=== PATIENT | male | born 1945 | race American Indian/Alaskan Native ===

== ENCOUNTER 2020-06-16 11:15 | Emergency (ER) | payer MEDICARE ==
[2020-06-16] MEDS ORDERED: oxyCODONE /ACETAMINOPHEN 5-325MG TAB PO ONE (12:00)
--- NOTE | 2020-06-16 12:03 | Emergency Department Report ---
ED General Adult HPI - General Chief complaint: Extremity Injury, Lower Stated complaint: RT HIP PAIN Time Seen by Provider: 06/16/20 11:56 Source: patient, EMS Mode of arrival: Wheelchair Limitations: Physical Limitation - History of Present Illness Initial comments: 74-year-old -[place] male patient presents with complaints of sudden onset of right hip pain upon waking this morning. He denies any injuries to the hip, heavy lifting, numbness/tingling/weakness in his leg, urinary symptoms, fever/chills/sweats, or loss of range of motion of the hip. Pain occurs mainly with movement per patient. He rates his pain as a 8/10 in severity. He states he is on allopurinol currently for gout and has not had a gout flare in many years or in his hip prior. Other past medical history includes hypertension, COPD, HLD, and CKD - Related Data Previous Rx's Medication Instructions Recorded Last Taken Type Colchicine 0.6 mg PO BID #3 capsule 06/16/20 Unknown Rx Prednisone [predniSONE 5 mg (6-Day 5 mg PO .TAPER #1 tab.ds.pk 06/16/20 Unknown Rx Pack, 21 Tabs)] Allergies Allergy/AdvReac Type Severity Reaction Status Date / Time Penicillins AdvReac Anaphylaxis Verified 06/16/20 11:43 shellfish derived AdvReac Anaphylaxis Verified 06/16/20 11:43 ED Review of Systems ROS: Stated complaint: RT HIP PAIN Other details as noted in HPI Constitutional: denies: chills, diaphoresis, fever, malaise, weakness Respiratory: denies: cough, shortness of breath Gastrointestinal: denies: abdominal pain, nausea, vomiting Genitourinary: denies: urgency, dysuria, frequency, hematuria, discharge, testicular pain Musculoskeletal: arthralgia. denies: back pain Neurological: denies: headache, numbness, paresthesias Hematological/Lymphatic: denies: swollen glands ED Past Medical Hx - Past Medical History Hx Hypertension: Yes Hx GERD: Yes Hx COPD: Yes Additional medical history: hyperlipidemia,GOUT - Social History Smoking Status: Never Smoker Substance Use Type: None - Medications Home Medications: Home Medications Medication Instructions Recorded Confirmed Last Taken Type Colchicine 0.6 mg PO BID #3 capsule 06/16/20 Unknown Rx Prednisone [predniSONE 5 mg (6-Day 5 mg PO .TAPER #1 tab.ds.pk 06/16/20 Unknown Rx Pack, 21 Tabs)] ED Physical Exam - General Limitations: Physical Limitation General appearance: alert, in no apparent distress, obese - Head Head exam: Present: atraumatic, normocephalic - Eye Eye exam: Present: normal appearance. Absent: scleral icterus - Respiratory Respiratory exam: Present: normal lung sounds bilaterally. Absent: respiratory distress - Cardiovascular Cardiovascular Exam: Present: regular rate - Extremities Exam Extremities exam: Present: full ROM, tenderness (Tenderness to palpation noted over right lateral hip and groin without obvious swelling noted; normal right pedal pulse noted and sensation) - Back Exam Back exam: Present: full ROM - Neurological Exam Neurological exam: Present: alert, oriented X3, other (Patient nonambulatory in wheelchair secondary to pain) - Psychiatric Psychiatric exam: Present: normal affect, normal mood - Skin Skin exam: Present: warm, dry, intact, normal color. Absent: rash ED Course Vital Signs 06/16/20 06/16/20 06/16/20 11:45 12:04 13:00 Temperature 99.1 F Pulse Rate 77 Respiratory 22 18 18 Rate Blood Pressure 131/85 Blood Pressure [Right] O2 Sat by Pulse 94 Oximetry 06/16/20 17:24 Temperature Pulse Rate 88 Respiratory 20 Rate Blood Pressure Blood Pressure 138/87 [Right] O2 Sat by Pulse 97 Oximetry ED Medical Decision Making - Lab Data Result diagrams: 06/16/20 12:37 06/16/20 12:37 Lab Results 06/16/20 06/16/20 Range/Units 12:37 12:37 WBC 8.5 (4.5-11.0) K/mm3 RBC 5.01 (3.65-5.03) M/mm3 Hgb 15.8 H (11.8-15.2) gm/dl Hct 46.3 H (35.5-45.6) % MCV 93 (84-94) fl MCH 32 (28-32) pg MCHC 34 (32-34) % RDW 14.7 (13.2-15.2) % Plt Count 260 (140-440) K/mm3 Lymph % (Auto) 16.9 (13.4-35.0) % [place] % (Auto) 11.9 H (0.0-7.3) % Eos % (Auto) 1.0 (0.0-4.3) % Baso % (Auto) 2.2 H (0.0-1.8) % Lymph # (Auto) 1.4 (1.2-5.4) K/mm3 [place] # (Auto) 1.0 H (0.0-0.8) K/mm3 Eos # (Auto) 0.1 (0.0-0.4) K/mm3 Baso # (Auto) 0.2 H (0.0-0.1) K/mm3 Seg Neutrophils % 68.0 (40.0-70.0) % Seg Neutrophils # 5.8 (1.8-7.7) K/mm3 Sodium 131 L (137-145) mmol/L Potassium 3.8 (3.6-5.0) mmol/L Chloride 94.7 L (98-107) mmol/L Carbon Dioxide 23 (22-30) mmol/L Anion Gap 17 mmol/L BUN 30 H (9-20) mg/dL Creatinine 2.0 H (0.8-1.3) mg/dL Estimated GFR 40 ml/min BUN/Creatinine Ratio 15 % Glucose 95 (75-100) mg/dL Calcium 10.2 (8.4-10.2) mg/dL - Medical Decision Making 74-year-old -[place] male patient presents with complaints of sudden onset of right hip pain upon waking this morning. He denies any injuries to the hip, heavy lifting, numbness/tingling/weakness in his leg, urinary symptoms, fever/chills/sweats, or loss of range of motion of the hip. Pain occurs mainly with movement per patient. He rates his pain as a 8/10 in severity. He states he is on allopurinol currently for gout and has not had a gout flare in many years or in his hip prior. Other past medical history includes hypertension, COPD, HLD, and CKD CBC shows normal white count. CKD noted on BMP along with mild hyponatremia. Patient given 1 L saline. Uric acid results still pending due to lab equipment being down. X-ray of the hip shows arthritic changes without acute bony abnormalities. Pain somewhat improved with Decadron and Percocet. Will treat f or gouty flare with colchicine and prednisone. Recommend patient follows up with his PCP within 2 to 3 days. Discussed in detail signs and symptoms that should prompt immediate return to the emergency department with patient who verbalized understanding. He is afebrile, nontachycardic, nontoxic-appearing, and stable for discharge home. Critical care attestation.: If time is entered above; I have spent that time in minutes in the direct care of this critically ill patient, excluding procedure time. ED Disposition Clinical Impression: Acute right hip pain Disposition: TO HOME OR SELFCARE Is pt being admited?: No Condition: Stable Instructions: Hip Pain Prescriptions: Colchicine 0.6 mg PO BID #3 capsule Prednisone [predniSONE 5 mg (6-Day Pack, 21 Tabs)] 5 mg PO .TAPER #1 tab.ds.pk Referrals: ESTELA BRAXTON MD [Staff Physician] - 3-5 Days IRIS ALATORRE MD [Primary Care Provider] - 2-3 Days
[2020-06-16 13:00] LABS: Basophils # (Auto) 0.2 K/mm3 (0.0-0.1); Basophils % (Auto) 2.2 % (0.0-1.8); Eosinophils # (Auto) 0.1 K/mm3 (0.0-0.4); Hematocrit 46.3 % (35.5-45.6); Hemoglobin 15.8 gm/dl (11.8-15.2); Lymphocytes # (Auto) 1.4 K/mm3 (1.2-5.4); Lymphocytes % (Auto) 16.9 % (13.4-35.0); Mean Corpuscular HGB Conc 34 % (32-34); Mean Corpuscular Volume 93 fl (84-94); Monocytes % (Auto) 11.9 % (0.0-7.3); Platelet Count 260 K/mm3 (140-440); Red Blood Count 5.01 M/mm3 (3.65-5.03); Red Cell Distribution Width 14.7 % (13.2-15.2)
--- NOTE | 2020-06-16 13:12 | XRay Report ---
RIGHT HIP 3 VIEW(S) INDICATION / CLINICAL INFORMATION: acute pain, no injury, hx of gout COMPARISON: None available. FINDINGS: BONES / JOINT(S): No acute fracture or subluxation. Minimal right hip joint space narrowing with mild degenerative arthrosis. SOFT TISSUES: No significant abnormality. ADDITIONAL FINDINGS: Prostatectomy with penile implant. Signer Name: Igor Horn MD Signed: 06/16/2020 1:07 PM Workstation Name: [id number]
[2020-06-16 14:41] LABS: Calcium 10.2 mg/dL (8.4-10.2)
[2020-06-16] MEDS ORDERED: dexAMETHasone 20 MG/5 ML VIAL IM ONE (15:06)
[2020-06-16] MEDS ORDERED: MORPHINE 4 MG/1 ML INJ IM ONE (16:34)
[2020-06-16 17:25] VITALS: BP 138/87
== END 2020-06-16 18:00 | disposition home or self-care (01) ==
LOC: ED 11:15
DX: M25.551 Pain in right hip (principal); I10 Essential (primary) hypertension; K21.9 Gastro-esophageal reflux disease without esophagitis; J44.9 Chronic obstructive pulmonary disease, unspecified; Z79.899 Other long term (current) drug therapy; Z88.0 Allergy status to penicillin; Z91.013 Allergy to seafood
CPT/HCPCS: 36415; 73502; 80048; 84550; 85025; 96372; 99284; J2270

== ENCOUNTER 2020-07-17 12:06 | Emergency (ER) | payer MEDICARE ==
[2020-07-17 12:29] VITALS: BP 131/81
[2020-07-17] MEDS ORDERED: ACETAMINOPHEN 500 MG TAB PO ONE (13:56)
[2020-07-17] MEDS ORDERED: TETANUS,DIPH,PERTUSS(ACELL) VACCINE 0.5 ML SYRINGE IM ONE (13:56)
[2020-07-17] MEDS ORDERED: NEOMY 3.5 MG/BACIT 400 UNITS/POLY B 5000 UNITS/GM OINT PACKET TP ONE (13:56)
[2020-07-17] MEDS ORDERED: DOXYCYCLINE 100 MG CAP PO ONE (13:57)
--- NOTE | 2020-07-17 13:58 | Emergency Department Report ---
ED General Adult HPI - General Chief complaint: Animal Bite Stated complaint: DOG BITE Time Seen by Provider: 07/17/20 13:55 Source: patient Mode of arrival: Ambulatory Limitations: No Limitations - History of Present Illness Initial comments: 74-year-old [id number] male patient presents to the emergency department with complaints of a dog bite to his right hand and right wrist occurring prior to arrival. The dog belongs to the patient. The dog's vaccinations are up-to-date. Patient cannot recall his last tetanus immunization. 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 Denies shoulder pain, arm pain, elbow pain, paresthesias, numbness, foreign body sensation. Denies other complaints at this time. Severity scale (0 -10): 6 - Related Data Previous Rx's Medication Instructions Recorded Last Taken Type Colchicine 0.6 mg PO BID #3 capsule 06/16/20 Unknown Rx Prednisone [predniSONE 5 mg (6-Day 5 mg PO .TAPER #1 tab.ds.pk 06/16/20 Unknown Rx Pack, 21 Tabs)] Doxycycline Hyclate 100 mg PO BID 7 Days tablet. 07/17/20 Unknown Rx Mupirocin [Bactroban 2%] 1 applic TP TID #1 tube 07/17/20 Unknown Rx Naproxen 500 mg PO BID #20 tablet 07/17/20 Unknown Rx Allergies Allergy/AdvReac Type Severity Reaction Status Date / Time Penicillins AdvReac Anaphylaxis Verified 06/16/20 11:43 shellfish derived AdvReac Anaphylaxis Verified 06/16/20 11:43 ED Review of Systems ROS: Stated complaint: DOG BITE Other details as noted in HPI Other: GENERAL: Negative for fever. CARDIOVASCULAR: Negative for chest pain. PULMONARY: Negative for shortness of breath. GASTROINTESTINAL: Negative for abdominal pain. MUSCULOSKELETAL: Negative for back pain. NEUROLOGICAL: Negative for headache. INTEGUMENTARY: Positive for dog bite. ED Past Medical Hx - Past Medical History Previous Medical History?: Yes Hx Hypertension: Yes Hx GERD: Yes Hx COPD: Yes Additional medical history: hyperlipidemia,GOUT - Surgical History Past Surgical History?: Yes Additional Surgical History: left knee replacement - Social History Smoking Status: Never Smoker Substance Use Type: None - Medications Home Medications: Home Medications Medication Instructions Recorded Confirmed Last Taken Type Colchicine 0.6 mg PO BID #3 capsule 06/16/20 Unknown Rx Prednisone [predniSONE 5 mg (6-Day 5 mg PO .TAPER #1 tab.ds.pk 06/16/20 Unknown Rx Pack, 21 Tabs)] Doxycycline Hyclate 100 mg PO BID 7 Days tablet. 07/17/20 Unknown Rx Mupirocin [Bactroban 2%] 1 applic TP TID #1 tube 07/17/20 Unknown Rx Naproxen 500 mg PO BID #20 tablet 07/17/20 Unknown Rx ED Physical Exam - General Limitations: No Limitations - Other Other exam information: General: Awake, appropriately interactive, no acute distress. Neck: Supple. Full range of motion intact. Cardiovascular: Normal peripheral perfusion. Pulmonary: No respiratory distress. Patient is speaking normally without use of accessory muscles. Skin: Two puncture wounds and one superficial (less than 0.5 cm) laceration noted to the dorsal aspect of the right wrist/hand with surrounding soft tissue swelling. No evidence of retained foreign body. Strong radial pulse. Brisk capillary refill. Strength and sensation intact. Neurological: No facial asymmetry. Speech is clear. Follows commands. Patient is alert and oriented. Musculoskeletal: Moves all four extremities spontaneously with normal range of motion. Psych: Cooperative. Appropriate mood and affect. ED Course Vital Signs 07/17/20 07/17/20 07/17/20 12:23 17:13 18:00 Temperature 98.5 F Pulse Rate 71 75 Respiratory 18 16 20 Rate Blood Pressure 131/81 [Right] O2 Sat by Pulse 100 97 Oximetry ED Medical Decision Making - Radiology Data [facility] [address] [place] [address] XRay Report Signed Patient: VENUS ADAMS MR#: [id number] 56 : 1945 Acct:[id number] Age/Sex: 74 / M ADM Date: 07/17/20 Loc: ED Attending Dr: Ordering Physician: JUNIOR CONDE Date of Service: 07/17/20 Procedure(s): XR wrist 3+V RT Accession Number(s): [id number] cc: JUNIOR CONDE Fluoro Time In Minutes: RIGHT WRIST 4 VIEW(S) INDICATION / CLINICAL INFORMATION: dog bite COMPARISON: None available. FINDINGS: BONES / JOINT(S): No acute fracture or subluxation. Advanced degenerative arthrosis thumb MCP joint with moderate degenerative arthrosis long finger MCP and distal radioulnar joint. SOFT TISSUES: Mild soft tissue swelling right wrist ADDITIONAL FINDINGS: None. Signer Name: Donte Graves MD Signed: 07/17/2020 2:44 PM Workstation Name: [email or web address] Transcribed By: TL Dictated By: Donte Graves MD Electronically Authenticated By: Donte Graves MD Signed Date/Time: 07/17/201443 DD/ 42 TD/TT: - Medical Decision Making Differential diagnosis including but not limited to: retained foreign body, fracture, dislocation, abrasion, laceration Patient presents to the emergency department for evaluation of dog bite to the right wrist/hand. Distal neurovascular and motor/sensory function intact. The dog is up-to-date on his rabies vaccinations. Patient's tetanus updated. No radiographic evidence of retained foreign body. Patient is not an appropriate candidate for primary wound closure due to risk of infection. Patient will be discharged home with prescription for Doxycycline (allergic to Penicillin), topical antibiotics, and referred to local primary care provider for close outpatient follow-up. Emphasized the importance of scheduling follow-up appointment for repeat wound evaluation. Patient expressed understanding and is agreeable to plan of care. Wound care precautions discussed. Strict return precautions provided. Repeat exam is unremarkable and benign. History, exam, diagnostic testing, and current condition do not suggest worrisome pathology to warrant further testing, continued ED treatment, admission, or surgical evaluation at this point. Given the low probability of a significant medical illness, it would be more likely to result in harm than benefit to perform further testing at this stage. Discussed findings, presumptive diagnosis, need for follow-up and specific signs/symptoms that should prompt immediate return to the emergency department. Instructions were explained in detail to the patient in addition to giving written discharge information. Patient expressed understanding and was given the opportunity to ask questions, all of which were satisfactorily answered prior to discharge home. Critical care attestation.: If time is entered above; I have spent that time in minutes in the direct care of this critically ill patient, excluding procedure time. ED Disposition Clinical Impression: Dog bite of right hand Qualifiers: Encounter type: initial encounter Qualified Code(s): S61.451A - Open bite of right hand, initial encounter Dog bite of right wrist Qualifiers: Encounter type: initial encounter Qualified Code(s): S61.551A - Open bite of right wrist, initial encounter Disposition: DC-01 TO HOME OR SELFCARE Is pt being admited?: No Does the pt Need Aspirin: No Condition: Stable Instructions: Animal Bite, Adult, [id number] Additional Instructions: Take Tylenol every 4 hours as needed for pain. Take Naprosyn twice daily with food as needed for pain. Take Doxycycline with food as directed. Increase your dietary intake of probiotic rich foods while taking this medication. Avoid prolonged sun exposure while taking this medication. Keep wounds clean and covered. Change dressing daily. Apply Bactroban ointment 3 times daily. You must follow-up with your primary care provider on Monday for repeat wound evaluation. Call today to schedule an appointment. See referral information below. Return to the emergency department immediately for new or worsening symptoms. Specifically, return to the emergency department immediately for fever, increased pain, worsening swelling, redness, drainage, or any other concerns. Prescriptions: Mupirocin [Bactroban 2%] 1 applic TP TID #1 tube Doxycycline Hyclate 100 mg PO BID 7 Days tablet.dr Fraser 500 mg PO BID #20 tablet Referrals: PRIMARY CAREMD [Referring] - 3-5 Days MARTHA WILKINS MD [Staff Physician] - 3-5 Days [facility] [Outside] - 3-5 Days [facility] [Outside] - 3-5 Days [facility] [Outside] - 3-5 Days [facility] [Provider Group] - 3-5 Days Time of Disposition: 15:20
[2020-07-17] MEDS ORDERED: NAPROXEN 500 MG TAB PO ONE (13:59)
--- NOTE | 2020-07-17 14:47 | XRay Report ---
RIGHT HAND 3 VIEW(S) INDICATION / CLINICAL INFORMATION: dog bite COMPARISON: None available. FINDINGS: BONES / JOINT(S): No acute fracture or subluxation. Moderately advanced degenerative changes thumb MC P and long finger MCP joints. Moderate degenerative arthrosis PIP/DIP joints right hand. SOFT TISSUES: No soft tissue gas or significant soft tissue swelling. No radiopaque foreign body ADDITIONAL FINDINGS: None. Signer Name: Donte Graves MD Signed: 07/17/2020 2:43 PM Workstation Name: [email or web address]
--- NOTE | 2020-07-17 14:48 | XRay Report ---
RIGHT WRIST 4 VIEW(S) INDICATION / CLINICAL INFORMATION: dog bite COMPARISON: None available. FINDINGS: BONES / JOINT(S): No acute fracture or subluxation. Advanced degenerative arthrosis thumb MCP joint w ith moderate degenerative arthrosis long finger MCP and distal radioulnar joint. SOFT TISSUES: Mild soft tissue swelling right wrist ADDITIONAL FINDINGS: None. Signer Name: Donte Graves MD Signed: 07/17/2020 2:44 PM Workstation Name: [id number]
== END 2020-07-17 18:00 | disposition home or self-care (01) ==
LOC: ED 12:06
DX: S61.451A Open bite of right hand, initial encounter (principal); S61.551A Open bite of right wrist, initial encounter; E78.5 Hyperlipidemia, unspecified; I10 Essential (primary) hypertension; K21.9 Gastro-esophageal reflux disease without esophagitis; J44.9 Chronic obstructive pulmonary disease, unspecified; M10.9 Gout, unspecified; Z88.0 Allergy status to penicillin; Z91.013 Allergy to seafood; Z98.890 Other specified postprocedural states; Z79.899 Other long term (current) drug therapy; W54.0XXA Bitten by dog, initial encounter; Y93.89 Activity, other specified; Y92.89 Other specified places as the place of occurrence of the external cause; Y99.8 Other external cause status
CPT/HCPCS: 73110; 73130; 90471; 90715; 99283; A6250